=== PATIENT | male | born 1960 | race Caucasian/White ===

== ENCOUNTER 2017-02-07 15:16 | Emergency (ER) | payer OTHER ==
[~2017-02-07] VITALS: Ht 175.3 cm; Wt 104.0 kg
[2017-02-07 15:20] VITALS: Ht 175.3 cm; Wt 104.0 kg
--- NOTE | 2017-02-07 17:04 | ERD ---
ER Documentation Chief Complaint Date/Time DATE: 02/07/17 TIME: 16:45 Chief Complaint "BED BUGS ALL OVER MY BODY HPI 56-year-old male who presented emergency department for generalized rashes, skin lesions. Patient stated that his skin lesions to his torso has been on and off for about 6 months. Was given topical cream by his primary care physician. Reports that his itchy. Denies headache, loss of consciousness, dizziness, blurry vision, changes in vision, photophobia, facial pain, ear pain, throat pain, difficulty swallowing, neck pain, shoulder pain, chest pain, cough, hemoptysis, abdominal pain, back pain, loss of appetite, nausea, vomiting, hematochezia, diarrhea, constipation, urinary symptoms, bladder and bowel incontinences, extremity weakness, extremity tenderness, numbness or tingling sensation, difficulty walking, recent travel, recent exposure to illness, recent antibiotic use in the last 3 months, fever, chills. No known drug allergies. Past medical history of arthritis. Denies surgical history. Medication: Motrin for his arthritis. Social: Stated that he is on disability. Smokes 1-3 sticks of cigarettes a day. Occasional drinks alcoholic beverages. Denies use of illegal drugs. We will be discharged with a final diagnosis of bacterial skin infection, ringworm ROS All systems reviewed and are negative except as per history of present illness. Medications Home Meds Active Scripts Diphenhydramine Hcl* (Benadryl*) 25 Mg Cap, 25 MG PO Q8 Y for ITCHING/RASH, #30 TAB Prov:JENI HENDERSON F 02/07/17 Clotrimazole* (Clotrimazole* AF) 1% - 30 Gm Cream.gm., 1 APPLIC TOP BID for 7 Days, TUB Prov:JOSEILABANSHARIAR F 02/07/17 Clindamycin Hcl* (Clindamycin Hcl*) 300 Mg Capsule, 300 MG PO TID for 10 Days, CAP Prov:PASILABAN,SHARIAR F 02/07/17 Allergies Allergies: Coded Allergies: No Known Allergy (Unverified , 09/22/13) PMhx/Soc Hx Alcohol Use: No Hx Substance Use: No Hx Tobacco Use: No Physical Exam Vitals Vital Signs Date Time Temp Pulse Resp B/P Pulse Ox O2 Delivery O2 Flow Rate FiO2 8/19/17 15:20 98.5 108 20 144/97 98 Physical Exam CONSTITUTIONAL: Well-appearing; well-nourished; in no apparent distress. HEAD: Normocephalic; atraumatic. EYES: Conjunctiva clear, sclera non-icteric, EOM intact. PERRL Ears: Hearing intact. EACs clear, TMs non-bulging, non-inflamed, translucent & mobile, ossicles normal appearance, No obstructions, no erythema, no discharges Nose: No obstructions. No polyps. No external lesions. Mucosa non-inflamed. No external lesions, septum and turbinates normal. No rhinorrhea. No discharges. Frontal sinus is non-tender to palpation. Maxillary sinus is non-tender to palpation. MOUTH: Moist mucous membranes, no lesion, no obstructions, no vesicles, no thrush, patent airway Throat: Uvula in midline. Right tonsil is +1 with no erythema, no exudate. Left tonsil is +1 with no erythema, no exudate. Tolerating secretions well. Good gag reflex. Patent airway. Neck: Supple, without lesions, bruits, or adenopathy. No mass. Thyroid non- enlarged and non-tender to palpation. CHEST: Symmetrical chest. Respirations even and not labored. No retractions noted. CARDIOVASCULAR: Normal S1, S2. RRR. No murmurs, gallops. RESPIRATORY: Normal chest excursion with respiration; breath sounds clear and equal bilaterally; no wheezes, rhonchi, or rales. Breathing even and unlabored. Speaking in clear, full, and complete sentences w/ ease. ABDOMEN: Normal bowel sounds normal. Soft, round, non-distended, non-guarding, no tenderness, no rebound, no organomegaly, no masses, no pulsating abdominal mass. No hernia. No peritoneal signs. : No CVA tenderness. BACK: Symmetrical shoulder. Spine is midline without deformity, tenderness. No evidence of trauma or deformity. PELVIS: Stable pelvis. No evidence of trauma or deformity. MUSCULOSKELETAL: Normal gait and station. No misalignment, asymmetry, crepitation, defects, tenderness, masses, effusions, decreased range of motion, instability, atrophy or abnormal strength or tone in the head, neck, spine, ribs , pelvis or extremities. No calf tenderness. NEUROVASCULAR: Distal pulses are present. Pedal pulse are present, equal, and normal. Capillary refills are < 2 seconds. NEUROLOGIC: Alert and oriented x4. Speaks full and clear sentences. Cranial Nerves II-XII normal. Sensation to pain, touch, and proprioception normal. Grossly unremarkable. No neurologic deficits. Romberg test is negative. PSYCHOLOGICAL: The patients mood and manner are appropriate. No hallucinations , delusions. Not SI. Not HI. Has the capacity to decide for self SKIN: Normal for age and ethnicity; warm; dry; good turgor; no apparent lesions or exudates. No hives, discoloration. Intact. Has red circular rash with clear skin at the middle to torso and back. Scab-like lesions to bilateral upper extremities. Procedures/MDM Examination: Please see physical examination. Disease process, medical treatment was explained to the patient and family member. They verbalized understanding and agreed with the medical treatment, and follow-up care. Re-evaluation: Denies headache, dizziness, blurry vision, neck pain, shoulder pain, chest pain, back pain, abdominal pain, nausea, vomiting. No episode of emesis in the emergency department. Alert and oriented 4. Speaks full and clear sentences. Respirations even and unlabored. Lung sounds clear to auscultation. Active bowel sounds. There is no right upper/right lower/ epigastric/left upper/left lower abdominal tenderness and light and deep palpation. Negative on Rovsings sign. Negative Radha sign. Able to jump 5 times without developing right-sided abdominal pain. No peritoneal signs. Ambulatory with steady gait. No neurovascular deficits. No neurological deficits. Consultation: None. Differential diagnosis: Scabies versus herpes versus ringworm versus allergic reaction versus hives Medical decision makin-year-old male who presented emergency department for generalized rashes, skin lesions. Patient stated that his skin lesions to his torso has been on and off for about 6 months. Was given topical cream by his primary care physician. Reports that his itchy. Patient's complaint, patient's history about his complaint, my physical findings are consistent with my final diagnosis of ringworm to torso, bacterial skin infection to bilateral arms. Medications prescribed are the following: Clindamycin. Clotrimazole. Patient and family member are made aware of the side effects and adverse reactions of the medications prescribed. Instructed on when to seek emergent and medical attention in case allergic/anaphylactic reactions or severe side effects and or adverse reactions to medications. Patient and family member verbalized understanding. Patient instructed Instructed to follow-up with his PCP in 24-48 hours. PCP to refer patient to a visual stylist. Instructed to Call 911 for chest pain, shortness of breath. Advised to come back here in ED as soon as possible for severity of symptoms which includes but not limited to: any new symptoms; shortness of breath/difficulty of breathing; cardiovascular changes; severe gastrointestinal symptoms; signs and symptoms of bleeding and or infection; signs of compartment syndrome/neurovascular changes; neurological changes/deficits. Patient and family member verbalized understanding. Upon discharge, patient is alert and oriented x 4, speaks full and clear sentences, denies pain, has no neurological deficits, has no neurovascular deficits, difficulty of breathing. Breathing even and unlabored. Lung sounds are clear to auscultation. Not in distress. Appears comfortable. Ambulatory with steady gait. Appears satisfied with care provided here in ED. Departure Diagnosis: Primary Impression: Bacterial skin infection Additional Impression: Ringworm Condition: Stable Additional Instructions: Instructed to follow-up with his PCP in 24-48 hours. PCP to refer patient to a visual stylist. Instructed to Call 911 for chest pain, shortness of breath. Advised to come back here in ED as soon as possible for severity of symptoms which includes but not limited to: any new symptoms; shortness of breath/difficulty of breathing; cardiovascular changes; severe gastrointestinal symptoms; signs and symptoms of bleeding and or infection; signs of compartment syndrome/neurovascular changes; neurological changes/deficits. Patient and family member verbalized understanding. JENI HENDERSON Feb 07, 2017 17:04
[2017-02-07] MEDS ORDERED: CLIN-73 PO (17:07)
[2017-02-07] MEDS ORDERED: CLOT30CR24 TOP (17:07)
[2017-02-07] MEDS ORDERED: BEN25 PO (17:08)
== END 2017-02-07 17:30 | disposition home or self-care (01) ==
LOC: FTE 15:16
DX: L08.89 Other specified local infections of the skin and subcutaneous tissue (principal); B96.89 Other specified bacterial agents as the cause of diseases classified elsewhere; B35.9 Dermatophytosis, unspecified; F17.210 Nicotine dependence, cigarettes, uncomplicated
CPT/HCPCS: 99283

== ENCOUNTER 2018-07-19 12:55 | Emergency (ER) | payer OTHER ==
[~2018-07-19] VITALS: Ht 170.2 cm; Wt 111.5 kg
[~2018-07-19 12:55] MED LIST: BEN25 PO; CLIN300C10 PO; CLOT30CR24 TOP
[2018-07-19 13:17] VITALS: Ht 170.2 cm; Wt 111.5 kg
[2018-07-19] MEDS ORDERED: HYDR-4011 PO (15:18)
[2018-07-19] MEDS ORDERED: PRED20TA PO (15:18)
[2018-07-19] MEDS ORDERED: NAPR-985 PO (15:18)
[2018-07-19] MEDS ORDERED: ACYC800T5 PO (15:18)
[2018-07-19] MEDS ORDERED: CEPH-443 PO (15:18)
[2018-07-19] MEDS ORDERED: LIDOCAINE 1% (MPF) 5 ML VIAL INJ ONE (15:30)
[2018-07-19] MEDS ORDERED: predniSONE 20 MG TAB PO ONE (15:30)
[2018-07-19] MEDS ORDERED: ACYCLOVIR 800 MG TAB PO ONE (15:30)
[2018-07-19] MEDS ORDERED: CEFTRIAXONE 1 GM INJ IM ONE (15:30)
--- NOTE | 2018-07-19 15:39 | ERD ---
ER Documentation Chief Complaint Chief Complaint PAINFUL RASH ON FACE X2 DAYS HPI 58-year-old male presenting with rash to face times 2 days. He states is very painful. It extends from the back of his left ear to his forehead. He has not taken medications for symptoms. Denies any fevers. He states he had a similar rash a few years ago which resolved with antibiotics. He denies any pain with eye movement. Denies any runny nose or cough. He states he has tactile fevers but has not taken medications for symptoms. Denies other medical problems. NKDA. Surgical history denies. Social history denies ROS All systems reviewed and are negative except as per history of present illness. Medications Home Meds Active Scripts Naproxen* (Naprosyn*) 500 Mg Tablet, 500 MG PO BID PRN for PAIN AND/OR INFLAMMATION, #30 TAB Prov:VIDAL CEDENO PA-C 07/19/18 Hydrocodone/Acetaminophen (Hemet 5-325 Tablet) 1 Each Tablet, 1 TAB PO Q6H PRN for PAIN, #7 TAB Prov:VIDAL CEDENO PA-C 07/19/18 Prednisone* (Prednisone*) 20 Mg Tab, 40 MG PO DAILY for 4 Days, TAB Prov:VIDAL CEDENO PA-C 07/19/18 Acyclovir* (Zovirax*) 800 Mg Tablet, 800 MG PO 5 TIMES DAILY for 7 Days, TAB Prov:VIDAL CEDENO PA-C 07/19/18 Cephalexin* (Keflex*) 500 Mg Capsule, 500 MG PO QID for 7 Days, CAP Prov:VIDAL CEDENO PA-C 07/19/18 Diphenhydramine Hcl* (Benadryl*) 25 Mg Cap, 25 MG PO Q8 PRN for ITCHING/RASH, #30 TAB Prov:JENI HENDERSON 02/07/17 Clotrimazole* (Clotrimazole* AF) 1% - 30 Gm Cream.gm., 1 APPLIC TOP BID for 7 Days, TUB Prov:JENI HENDERSON 02/07/17 Clindamycin Hcl* (Clindamycin Hcl*) 300 Mg Capsule, 300 MG PO TID for 10 Days, CAP Prov:JENI HENDERSON 02/07/17 Allergies Allergies: Coded Allergies: No Known Allergy (Unverified , 09/22/13) PMhx/Soc History of Surgery: Yes (ANKLE SX) Hx Alcohol Use: No Hx Substance Use: No Hx Tobacco Use: No FmHx Family History: No diabetes, No coronary disease, No other Physical Exam Vitals Vital Signs Date Temp Pulse Resp B/P (MAP) Pulse Ox O2 O2 Flow FiO2 Time Delivery Rate 07/19/18 98.3 97 18 188/78 97 13:17 (114) Physical Exam GENERAL: The patient is well-appearing, well-nourished, in no acute distress HEENT: Atraumatic. Conjunctivae are pink. Pupils equal, round, and reactive to light. There is no scleral icterus. Tympanic membranes clear bilaterally. Oropharynx clear. CHEST: Clear to auscultation bilaterally. There are no rales, wheezes or rhonchi. HEART: Regular rate and rhythm. No murmurs, clicks, rubs or gallops. No S3 or S4. SKIN: Erythematous rash noted on forehead with questionable vesicles. Rash does appear to cross midline however does have vesicle formation. Results 24 hrs Current Medications Medications Dose Sig/Jasson Start Time Status Last (Trade) Ordered Route PRN Stop Time Admin Dose Reason Admin Ceftriaxone 1 gm ONCE ONCE 07/19/18 DC 07/19/18 Sodium IM 15:30 15:27 (Rocephin) 07/19/18 15:31 Lidocaine 5 ml ONCE ONCE 07/19/18 DC 07/19/18 (Xylocaine INJ 15:30 15:26 1% (Mpf)) 07/19/18 15:31 Acyclovir 800 mg ONCE ONCE 07/19/18 DC 07/19/18 (Zovirax) PO 15:30 15:26 07/19/18 15:31 Prednisone 60 mg ONCE ONCE 07/19/18 DC 07/19/18 (Prednisone) PO 15:30 15:26 07/19/18 15:31 Procedures/MDM ER course: Acyclovir and prednisone given ED. IM injection of Rocephin given ED. Dr. Wise evaluated patient and agree with assessment and plan. MDM: 58-year-old male presenting with findings that appear to be shingles. There is some question as rash questionably crosses the midline so I will treat for possible early cellulitis as well as a shingles infection. I have low suspicion for life-threatening rash. Patient is discharged with supportive medications to cover for both viral and bacterial infection. Patient is told symptoms change or worsen to return immediately to the ER. Patient is recommended to follow-up with primary care in 1-2 days for close evaluation. All questions answered at discharge Departure Diagnosis: Primary Impression: Rash Condition: Stable Patient Instructions: Self-Care for Skin Rashes Referrals: [facility] (PCP) Additional Instructions: FOLLOW UP WITH YOUR PRIMARY CARE PHYSICIAN TOMORROW.Return to this facility if you are not improving as expected. VIDAL CEDENO PA-C Jul 19, 2018 15:39
[2018-07-19 15:58] VITALS: BP 142/69; PULSE 79; RESP 18
== END 2018-07-19 15:59 | disposition home or self-care (01) ==
LOC: FTE 12:55
DX: R21 Rash and other nonspecific skin eruption (principal)
CPT/HCPCS: 96372; J0696; J7512; Z7502; Z7610